=== PATIENT | female | born 1980 | race Caucasian/White ===

== ENCOUNTER 2024-05-07 21:24 | Inpatient (IN) ==
[2024-05-07] MEDS: SODIUM CHLORIDE 0.9% 1,000 ML IV STA (21:52)
[2024-05-07] MEDS: KETOROLAC TROMETHAMINE 15 MG/ML VIAL IV STA (21:52)
--- NOTE | 2024-05-07 21:54 | Emergency Department Note ---
History of Present Illness General Chief complaint: Abdominal Pain Stated complaint: LT ABD PAIN, POSSIBLE KIDNEY STONE, DOC REF Time Seen by Provider: 05/07/24 21:27 History of Present Illness Maximum Pain Intensity: 8 This 43-year-old female presents ER with family for evaluation of left lower abdominal pain for the past week. She went to urgent care was sent in. She has had a kidney stone in the past. Patient denies chest pain, dyspnea, fevers, vomiting, urinary symptoms. No trauma to the area. No history diverticulitis. No colonoscopy. Home Medications Medication Instructions Recorded Confirmed Type acetaminophen 500 mg tablet 500 mg PO Q6H PRN Pain 05/07/24 05/07/24 History (Tylenol Extra Strength) ergocalciferol (vitamin D2) 1,250 50,000 unit PO WK 05/07/24 05/07/24 History mcg (50,000 unit) capsule ibuprofen 200 mg tablet 600 mg PO Q6H PRN Pain 05/07/24 05/07/24 History multivitamin 1 tab PO DAILY 05/07/24 05/07/24 History Allergies Allergy/AdvReac Type Severity Reaction Status Date / Time No Known Allergies Allergy Verified 05/07/24 22:21 Past Med/Surg History Problem List (Updated 05/07/24 @ 23:40 by Radha Burden PA-C) Acute hyperglycemia (Acute) Ureterolithiasis (Acute) Renal colic on left side (Acute) Social History Smoking Status: Never smoker Feels Safe at Home: Yes Review of Systems A total of 10 systems reviewed and were otherwise negative Physical Exam Vital Signs Vital Signs - 24 hr 05/07/24 21:27 05/07/24 21:47 05/07/24 21:47 Temperature 36.9 C Temperature Source Temporal Artery Scan Pulse Rate 112 H 104 H Pulse Rate [Apical] 103 H Pulse Rhythm Regular Pulse Strength Normal Respiratory Rate 20 19 Respiratory Effort / Characteristics Non-Labored Spontaneous Respiratory Depth Normal Blood Pressure 168/90 H Blood Pressure [Left Arm] 201/101 H Blood Pressure Mean 116 Blood Pressure Mean [Left Arm] 134 Blood Pressure Position Sitting Pulse Oximetry 98 94 Oxygen Delivery Method Room Air Room Air Sepsis Recent Fever Within 48 Hours No Sepsis New/Unexplained Change in Mental Status N/A Sepsis Action Taken by Nursing No Action Required 05/07/24 21:49 05/07/24 23:00 Temperature Temperature Source Pulse Rate 104 H Pulse Rate [Apical] 81 Pulse Rhythm Pulse Strength Respiratory Rate 18 25 H Respiratory Effort / Characteristics Respiratory Depth Blood Pressure Blood Pressure [Left Arm] 159/105 H Blood Pressure Mean Blood Pressure Mean [Left Arm] 123 Blood Pressure Position Pulse Oximetry 94 98 Oxygen Delivery Method Room Air Room Air Sepsis Recent Fever Within 48 Hours Sepsis New/Unexplained Change in Mental Status Sepsis Action Taken by Nursing VITALS: Vitals are noted on the nurse's note and reviewed by myself. Vital signs stable. GENERAL: Pleasant female, in no acute distress, nondiaphoretic, well-developed well-nourished. SKIN: Capillary reflex less than 2 seconds. HEENT: Normocephalic. PERRLA. EOMI. Nares patent. Mucous membranes moist. Neck is supple without nuchal rigidity. HEART: Regular rate and rhythm LUNGS: Clear to auscultation bilaterally without wheezes, rales or rhonchi. No retractions or accessory muscle use. ABDOMEN: Positive bowel sounds x 4. Normal tympanic percussion. Soft, tender to palpation left lower quadrant, without masses or organomegaly. Aguilar sign negative. No guarding or rebound tenderness. no CVA tenderness MUSCULOSKELETAL: No gross musculoskeletal defects. NEURO: Patient was alert and oriented to person place and time. No focal neurological deficits. Course Administered Medications Ceftriaxone Sodium (Rocephin) 2,000 mg in 50 mls @ 100 mls/hr IV NOW STA Stop: 05/08/24 00:11 Last Admin: 05/07/24 23:53 Dose: 100 mls/hr Documented By: NASIM Discontinued Medications Sodium Chloride (Nss) 1,000 mls @ 999 mls/hr IV .Q1H1M STA Stop: 05/07/24 22:43 Last Infusion: 05/07/24 23:54 Dose: Infused Documented By: Admin: 05/07/24 21:52 Dose: 999 mls/hr Documented By: NASIM Acetaminophen (Ofirmev) 1,000 mg in 100 mls @ 400 mls/hr IV NOW STA Stop: 05/07/24 23:49 Last Admin: 05/07/24 23:53 Dose: 400 mls/hr Documented By: NASIM Ioversol (Optiray 320 100ml) 92 ml IV ONCE ONE Stop: 05/07/24 22:18 Last Admin: 05/07/24 22:17 Dose: 92 ml Documented By: AGUSTIN Ketorolac Tromethamine (Ketorolac Tromethamine 15 Mg/Ml Vial) 10 mg IV NOW STA Stop: 05/07/24 21:44 Last Admin: 05/07/24 21:52 Dose: 10 mg Documented By: NASIM Tamsulosin HCl (Tamsulosin Hcl 0.4 Mg Cap) 0.4 mg PO NOW ONE Stop: 05/07/24 23:36 Last Admin: 05/07/24 23:53 Dose: 0.4 mg Documented By: NASIM Medical Decision Making Medical Records Attestation: I reviewed the patient's medical records. Home Medications Current Medication List: was personally reviewed by me Laboratory Data Attestation: I reviewed the patient's lab results. 05/07/24 21:54 05/07/24 21:54 Lab Results 05/07/24 05/07/24 05/07/24 Range/Units 21:46 21:54 22:01 WBC 12.01 H (4.8-10.8) K/ul RBC 4.70 (4.20-5.40) M/uL Hgb 13.2 (12.0-16.0) g/dl POC Hgb 13.3 (12.0-16.0) g/dl Hct 39.4 (37.0-47.0) % POC Hct 39 (37-47) % MCV 83.8 (80.0-100.0) fL MCH 28.1 (25.0-34.0) pg MCHC 33.5 (32.0-36.0) g/dL RDW Std Deviation 38.3 (36.4-46.3) fL RDW Coeff of Dasha 12.7 (11.5-14.5) % Plt Count 289 (130-400) K/uL MPV 9.8 (9.4-12.4) fL Immature Gran % (Auto) 0.7 % Neut % (Auto) 73.0 % Lymph % (Auto) 19.9 % [place] % (Auto) 4.7 % Eos % (Auto) 1.4 % Baso % (Auto) 0.3 % Neut # (Auto) 8.75 H (1.40-6.50) K/uL Lymph # (Auto) 2.39 (1.20-3.40) K/uL [place] # (Auto) 0.57 (0.11-0.59) K/uL Eos # (Auto) 0.17 (0.00-0.50) K/uL Baso # (Auto) 0.04 (0.00-0.20) K/uL Immature Gran # (Auto) 0.09 (0.01-0.20) K/uL POC Sodium 141 (135-144) mmol/L Sodium 138 (136-145) mmol/L POC Potassium 4.0 (3.3-5.0) mmol/L Potassium 4.0 (3.5-5.1) mmol/L POC Chloride 107 (101-112) mmol/L Chloride 106 (98-107) mmol/L Carbon Dioxide 24 (21-32) mmol/L POC Total CO2 22 L (24-31) mmol/L Anion Gap 8 (3-11) POC Anion Gap 17.0 (16-25) mmol/L POC BUN 8 (7-18) mg/dl BUN 10 (6-23) mg/dl Creatinine 0.70 (0.6-1.2) mg/dl POC Creatinine 0.7 (0.6-1.3) mg/dl Est Cr Clr Drug Dosing 132.7 ml/min Est GFR ( Amer) 121.3 ml/min Est GFR (Non-Af Amer) 104.6 ml/min BUN/Creatinine Ratio 14.3 (10-20) Glucose 144 H (70-99(Fasting)) mg/dl POC Glucose (other) 154 H (70-99) mg/dl Calcium 9.9 (8.6-10.3) mg/dl POC Ioniz Calcium [place] 1.21 (1.12-1.32) mmol/l Total Bilirubin 0.3 (0.2-1.0) mg/dl AST 30 (13-39) U/L ALT 32 (7-52) U/L Alkaline Phosphatase 81 (34-104) U/L Total Protein 7.5 (6.0-8.3) gm/dl Albumin 4.5 (3.4-5.0) gm/dl Globulin 3.0 (2.5-4.0) gm/dl Albumin/Globulin Ratio 1.5 (0.9-2) Lipase 27 (11-82) U/L HCG, Qual Negative (Negative) Urine Color Yellow Urine Appearance Cloudy A (Clear) Urine pH 5.5 (4.5-7.5) Ur Specific [place] 1.015 (1.000-1.030) Urine Protein 1+ H (Negative) Urine Glucose (UA) Negative (Negative) Urine Ketones Negative (Negative) Urine Blood 3+ H (Negative) Urine Nitrite Negative (Negative) Urine Bilirubin Negative (Negative) Urine Urobilinogen Negative (Negative) Ur Leukocyte Esterase Trace H (Negative) Urine WBC (Auto) 0-5 (0-5) /hpf Urine RBC (Auto) >20 H (0-2) /hpf U Hyaline Cast (Auto) 3-5 H (0-2) /lpf U Epithel Cells (Auto) 6-10 H (0-2) /hpf Urine Bacteria (Auto) 1+ H (None Seen) Imaging Data Attestation: I personally reviewed and interpreted this imaging study as follows: Radiologist's Impression: Abdomen/Pelvis CT 05/07/24 21:43 Exam(s): CT ABDOMEN + PELVIS With Contrast IV Amt: 92ml EXAM: CT Abdomen and Pelvis With Intravenous Contrast CLINICAL HISTORY: Left lower quadrant Pain. TECHNIQUE: Axial computed tomography images of the abdomen and pelvis with intravenous contrast. CTDI is 28 mGy and DLP is 1561 mGy-cm. Automated exposure control was utilized for the study. A dose lowering technique was utilized adhering to the principles of ALARA. CONTRAST: Patient received 92ml of IV contrast COMPARISON: No relevant prior studies available. FINDINGS: Lung bases: Unremarkable. No mass. No consolidation. ABDOMEN: Liver: Fatty infiltration of the liver. Gallbladder and bile ducts: Cholelithiasis. No ductal dilation. Pancreas: Unremarkable. No mass. No ductal dilation. Spleen: Unremarkable. No splenomegaly. Adrenals: Unremarkable. No mass. Kidneys and ureters: Mild left hydronephrosis secondary to a 7 x 4 x 10 mm ureteropelvic junction calculus. The right kidney is unremarkable. There is a simple appearing left renal cyst, no follow-up is needed. Stomach and bowel: Unremarkable. No obstruction. No mucosal thickening. PELVIS: Appendix: Normal appendix. Bladder: Unremarkable. No mass. Reproductive: Unremarkable as visualized. ABDOMEN and PELVIS: Intraperitoneal space: Unremarkable. No free air. No significant fluid collection. Bones/joints: No acute fracture. No dislocation. Soft tissues: Unremarkable. Vasculature: Unremarkable. No abdominal aortic aneurysm. Lymph nodes: Unremarkable. No enlarged lymph nodes. IMPRESSION: 1. Mild left hydronephrosis secondary to a 7 x 4 x 10 mm ureteropelvic junction calculus. 2. Fatty infiltration of the liver. 3. Cholelithiasis. Electronically signed by: Priya Contreras MD 05/07/24 23:28 PM MDM Narrative Prior records/ancillary studies reviewed. Triage Nursing notes reviewed. Additional history obtained from family. The patient's history was concerning for abdominal pain. Differential diagnosis: Etiologies such as appendicitis, diverticulitis, PUD, biliary pathology, UTI, pancreatitis, obstruction, mesenteric ischemia, aortic pathology, infections, inflammatory bowel disease, renal colic, as well as others were entertained. Physical examination findings: As above. ER treatment provided: An order was placed for continuous cardiac monitoring. The monitor shows a rate of 60-100 with a sinus rhythm per my Independent interpretation. IV fluids, Toradol, Tylenol, Flomax, Rocephin for possible UTI. No prior urine culture for review I did review the notes from urgent care. Patient had blood in her urine. No signs of infection. Negative hCG On reassessment the patient felt better. Diagnostics interpreted by me: The labs Independently Interpreted by myself revealed mild leukocytosis, hyperglycemia, DKA. Negative hCG, urine with bacteria and concerns for possible infection. Patient was given Rocephin. Imaging studies: Imaging as above Consultation: A consultation was placed with the hospitalist. The case was discussed and diagnostics were reviewed. The patient was evaluated in the ER for further treatment. Exam and history seem consistent with left renal colic with urolithiasis with possible UTI. The stone is quite large. Patient is having increasing pain. Medicine was consulted and case was discussed. She will be evaluated for possible admission for intractable kidney stone pain. By the evaluation outlined above emergent etiologies such as appendicitis, diverticulitis, PUD, biliary pathology, pancreatitis, obstruction, mesenteric ischemia, aortic pathology, inflammatory bowel disease, as well as others were deemed relatively unlikely. The pt informed about the findings as listed above. All questions were answered and pleased with the treatment. The chart was completed utilizing [employer] voice recognition software. Grammatical errors, random word insertions, pronoun errors, and incomplete sentences are an occassional consequence of this system due to software limitations, ambient noise, and hardware issues. Any formal questions or concerns about the content, text, or information contained within the body of this dictation should be directly addressed to the physician credit control assistant for clarification. Impression & Plan Renal colic on left side, Ureterolithiasis, Acute hyperglycemia Discharge Plan Visit Data Chief Complaint: Abdominal Pain Stated Complaint: LT ABD PAIN, POSSIBLE KIDNEY STONE, DOC REF ED Provider: Mic De La Cruz ED Midlevel Provider: Radha Burden Discharge Problem: Renal colic on left side, Ureterolithiasis, Acute hyperglycemia Patient Disposition: Being Evaluated by Hospitalist Condition: Good Forms Stand Alone Forms: DVS [employer] Prescriptions Prescriptions: No Action multivitamin Tablet 1 tab PO DAILY acetaminophen [Tylenol Extra Strength] 500 mg Tablet 500 mg PO Q6H PRN (Reason: Pain) ibuprofen 200 mg Tablet 600 mg PO Q6H PRN (Reason: Pain) ergocalciferol (vitamin D2) 1,250 mcg (50,000 unit) capsule 50,000 unit PO WK Rx Instructions: MONDAYS Referrals Referrals: Patt Benitez DO [Outside Practitioners] -
[2024-05-07 22:08] LABS: Basophils # (auto) 0.04 K/uL (0.00-0.20); Basophils % (auto) 0.3 %; Eosinophils # (auto) 0.17 K/uL (0.00-0.50); Eosinophils % (auto) 1.4 %; Hematocrit (blood only) 39.4 % (37.0-47.0); Hemoglobin 13.2 g/dl (12.0-16.0); Immature Granulocytes # (auto) 0.09 K/uL (0.01-0.20); Immature Granulocytes % (auto) 0.7 %; Lymphocytes # (auto) 2.39 K/uL (1.20-3.40); Lymphocytes % (auto) 19.9 %; Mean Corpuscular Hemoglobin 28.1 pg (25.0-34.0); Mean Corpuscular Hgb Conc 33.5 g/dL (32.0-36.0); Mean Corpuscular Volume 83.8 fL (80.0-100.0); Mean Platelet Volume 9.8 fL (9.4-12.4); Monocytes # (auto) 0.57 K/uL (0.11-0.59); Monocytes % (auto) 4.7 %; Neutrophils # (auto) 8.75 K/uL (1.40-6.50); Platelet Count 289 K/uL (130-400); RDW Coefficient of Variation 12.7 % (11.5-14.5); RDW Standard Deviation 38.3 fL (36.4-46.3); White Blood Count 12.01 K/ul (4.8-10.8)
[2024-05-07 22:12] LABS: iSTAT Creatinine 0.7 mg/dl (0.6-1.3); iSTAT Hemoglobin 13.3 g/dl (12.0-16.0); iSTAT Ionized Calcium 1.21 mmol/l (1.12-1.32)
[2024-05-07 22:13] LABS: Appearance Urine Cloudy (Clear); Bacteria Urine Automated 1+ (None Seen); Bilirubin Urine Negative (Negative); Blood Urine 3+ (Negative); Color Urine Yellow; Glucose Urine UA Negative (Negative); Ketones Urine Negative (Negative); Leukocyte Esterase Urine Trace (Negative); Nitrite Urine Negative (Negative); Protein Urine 1+ (Negative); RBC Urine Automated >20 /hpf (0-2); Specific Gravity Urine 1.015 (1.000-1.030); Urobilinogen Urine Negative (Negative); WBC Urine Automated 0-5 /hpf (0-5); pH Urine 5.5 (4.5-7.5)
[2024-05-07] MEDS: OPTIRAY 320 100ml IV ONE (22:17)
[2024-05-07 22:24] LABS: Pregnancy Test, Serum Negative (Negative)
[2024-05-07 22:27] LABS: Albumin Globulin Ratio 1.5 (0.9-2); Albumin Level 4.5 gm/dl (3.4-5.0); BUN Creatinine Ratio 14.3 (10-20); Bilirubin,Total 0.3 mg/dl (0.2-1.0); Calcium 9.9 mg/dl (8.6-10.3); Creatinine Clr Calc Pharmacy 132.7 ml/min; Est GFR (African American) 121.3 ml/min; Est GFR (Non-African American) 104.6 ml/min; Total Protein 7.5 gm/dl (6.0-8.3)
--- NOTE | 2024-05-07 23:28 | CT Scan Report ---
Exam(s): CT ABDOMEN + PELVIS With Contrast IV Amt: 92ml EXAM: CT Abdomen and Pelvis With Intravenous Contrast CLINICAL HISTORY: Left lower quadrant Pain. TECHNIQUE: Axial computed tomography images of the abdomen and pelvis with intravenous contrast. CTDI is 28 mGy and DLP is 1561 mGy-cm. Automated exposure control was utilized for the study. A dose lowering technique was utilized adhering to the principles of ALARA. CONTRAST: Patient received 92ml of IV contrast COMPARISON: No relevant prior studies available. FINDINGS: Lung bases: Unremarkable. No mass. No consolidation. ABDOMEN: Liver: Fatty infiltration of the liver. Gallbladder and bile ducts: Cholelithiasis. No ductal dilation. Pancreas: Unremarkable. No mass. No ductal dilation. Spleen: Unremarkable. No splenomegaly. Adrenals: Unremarkable. No mass. Kidneys and ureters: Mild left hydronephrosis secondary to a 7 x 4 x 10 mm ureteropelvic junction calculus. The right kidney is unremarkable. There is a simple appearing left renal cyst, no follow-up is needed. Stomach and bowel: Unremarkable. No obstruction. No mucosal thickening. PELVIS: Appendix: Normal appendix. Bladder: Unremarkable. No mass. Reproductive: Unremarkable as visualized. ABDOMEN and PELVIS: Intraperitoneal space: Unremarkable. No free air. No significant fluid collection. Bones/joints: No acute fracture. No dislocation. Soft tissues: Unremarkable. Vasculature: Unremarkable. No abdominal aortic aneurysm. Lymph nodes: Unremarkable. No enlarged lymph nodes. IMPRESSION: 1. Mild left hydronephrosis secondary to a 7 x 4 x 10 mm ureteropelvic junction calculus. 2. Fatty infiltration of the liver. 3. Cholelithiasis. Electronically signed by: Priya Contreras MD 05/07/24 23:28 PM
[2024-05-07] MEDS: cefTRIAXone SODIUM 2,000 MG/50 ML BAG IV STA (23:53)
[2024-05-07] MEDS: TAMSULOSIN HCL 0.4 MG CAP PO ONE (23:53)
[2024-05-07] MEDS: ACETAMINOPHEN 1,000 MG/100 ML VIAL IV STA (23:53)
--- NOTE | 2024-05-07 23:57 | History & Physical Report ---
Date of Service May 07, 2024 Assessment & Plan (1) Ureterolithiasis: Plan: 43yo female presenting with left sided flank and abdominal pain ongoing x 1 week found to have mild left hydronephrosis secondary to a 7 x 4 x 10mm ureteropelvic junction calculus. Patient with ongoing pain. UA with 1+ bacteria -Admit to medical -Follow urine culture -Strain all urine -Keep patient NPO for possible Urological intervention in AM -IVF with LR at 125mL/hr x 2L -Tylenol PRN -Morphine PRN -Zofran PRN -Ceftriaxone 1gm IV daily -Urology consultation appreciated (2) Acute hyperglycemia: Plan: BSG elevated at 144, non-fasting. No history of DM -Check HgbA1C F/E/N - LR at 125mL/hr x 2L, electrolytes WNL, NPO for now PPx - low risk for DVT Code - Full Dispo -Admit to medical History of Present Illness Chief Complaint: Flank and abdominal pain Primary Care Provider: Yahir Bolton Ana Ram is a 43yo female with history of ankylosing spondylosis, prior renal stone 2.5 years ago (which resolved with increased fluid and apple cider vinegar) presenting with one week of left flank and anterior abdominal pain. Patient reports that pain has been present for the last week but became more intense today. It is predominantly located in the left lower abdomen. She has been trying to drink lemon water and increased fluids to assist with passing the stone. She was seen at Urgent Care and had a UA obtained which revealed blood, concern for renal stone. Patient was subsequently sent to the ER. She also reports feeling very tired and lethargic this week but otherwise denies fever, chills, cough, CP, SOB, nausea, vomiting or diarrhea. No additional complaints. In the ER she is afebrile, HD stable ER Course: Ceftriaxone Allergies Allergy/AdvReac Type Severity Reaction Status Date / Time No Known Allergies Allergy Verified 05/07/24 22:21 Home Medications Medication Instructions Recorded Confirmed Type acetaminophen 500 mg tablet 500 mg PO Q6H PRN Pain 05/07/24 05/07/24 History (Tylenol Extra Strength) ergocalciferol (vitamin D2) 1,250 50,000 unit PO WK 05/07/24 05/07/24 History mcg (50,000 unit) capsule ibuprofen 200 mg tablet 600 mg PO Q6H PRN Pain 05/07/24 05/07/24 History multivitamin 1 tab PO DAILY 05/07/24 05/07/24 History Past Med/Surg History Problem List Acute hyperglycemia (Acute) Ureterolithiasis (Acute) Renal colic on left side (Acute) Social History Smoking Status: Never smoker Feels Safe at Home: Yes Review of Systems Review of Systems: All systems reviewed & are unremarkable except as noted in HPI & below Physical Exam Physical Exam: General: patient resting comfortably, NAD, non-toxic in appearance, AA&O x 4 Skin: warm, dry, intact, no rashes or lesions HEENT: NC/AT, PERRL, EOMI, anicteric sclera, conjunctiva without injection, external ear normal to inspection and nontender, nares patent, moist mucus membranes, dentition intact, no oropharyngeal lesions, neck supple, trachea midline, no LAD, no thyromegaly, no JVD Heart: +S1/S2, regular, no m/r/g Lungs: equal air entry bilaterally, no rales/rhonchi/wheezes Abd: +BS, soft, NT/ND, no masses/organomegaly/ascites Ext: warm, 2+ pulses in UE/LE bilaterally, no clubbing/cyanosis or edema Neuro: nonfocal, patient AA&O x 4, speech intact, no facial droop, moving all extremities on command with equal strength 5/5 Results & Data Results & Data Vital Signs (Past 12 Hours) Vital Signs Temp Pulse Pulse Resp BP BP Pulse Ox 05/07/24 23:00 81 25 H 159/105 H 98 05/07/24 21:49 104 H 18 94 05/07/24 21:47 104 H 05/07/24 21:47 103 H 19 201/101 H 94 05/07/24 21:27 36.9 C 112 H 20 168/90 H 98 O2 Del Method 05/07/24 23:00 Room Air 05/07/24 21:49 Room Air 05/07/24 21:47 05/07/24 21:47 Room Air 05/07/24 21:27 Room Air Laboratory Results Laboratory Results WBC 12.01 K/ul (4.8-10.8) H 05/07/24 21:54 RBC 4.70 M/uL (4.20-5.40) 05/07/24 21:54 Hgb 13.2 g/dl (12.0-16.0) 05/07/24 21:54 POC Hgb 13.3 g/dl (12.0-16.0) 05/07/24 22:01 Hct 39.4 % (37.0-47.0) 05/07/24 21:54 POC Hct 39 % (37-47) 05/07/24 22:01 MCV 83.8 fL (80.0-100.0) 05/07/24 21:54 MCH 28.1 pg (25.0-34.0) 05/07/24 21:54 MCHC 33.5 g/dL (32.0-36.0) 05/07/24 21:54 RDW Std Deviation 38.3 fL (36.4-46.3) 05/07/24 21:54 RDW Coeff of Dasha 12.7 % (11.5-14.5) 05/07/24 21:54 Plt Count 289 K/uL (130-400) 05/07/24 21:54 MPV 9.8 fL (9.4-12.4) 05/07/24 21:54 Immature Gran % (Auto) 0.7 % 05/07/24 21:54 Neut % (Auto) 73.0 % 05/07/24 21:54 Lymph % (Auto) 19.9 % 05/07/24 21:54 [place] % (Auto) 4.7 % 05/07/24 21:54 Eos % (Auto) 1.4 % 05/07/24 21:54 Baso % (Auto) 0.3 % 05/07/24 21:54 Neut # (Auto) 8.75 K/uL (1.40-6.50) H 05/07/24 21:54 Lymph # (Auto) 2.39 K/uL (1.20-3.40) 05/07/24 21:54 [place] # (Auto) 0.57 K/uL (0.11-0.59) 05/07/24 21:54 Eos # (Auto) 0.17 K/uL (0.00-0.50) 05/07/24 21:54 Baso # (Auto) 0.04 K/uL (0.00-0.20) 05/07/24 21:54 Immature Gran # (Auto) 0.09 K/uL (0.01-0.20) 05/07/24 21:54 POC Sodium 141 mmol/L (135-144) 05/07/24 22:01 Sodium 138 mmol/L (136-145) 05/07/24 21:54 POC Potassium 4.0 mmol/L (3.3-5.0) 05/07/24 22:01 Potassium 4.0 mmol/L (3.5-5.1) 05/07/24 21:54 POC Chloride 107 mmol/L (101-112) 05/07/24 22:01 Chloride 106 mmol/L (98-107) 05/07/24 21:54 Carbon Dioxide 24 mmol/L (21-32) 05/07/24 21:54 POC Total CO2 22 mmol/L (24-31) L 05/07/24 22:01 Anion Gap 8 (3-11) 05/07/24 21:54 POC Anion Gap 17.0 mmol/L (16-25) 05/07/24 22:01 POC BUN 8 mg/dl (7-18) 05/07/24 22:01 BUN 10 mg/dl (6-23) 05/07/24 21:54 Creatinine 0.70 mg/dl (0.6-1.2) 05/07/24 21:54 POC Creatinine 0.7 mg/dl (0.6-1.3) 05/07/24 22:01 Est Cr Clr Drug Dosing 132.7 ml/min 05/07/24 21:54 Est GFR ( Amer) 121.3 ml/min 05/07/24 21:54 Est GFR (Non-Af Amer) 104.6 ml/min 05/07/24 21:54 BUN/Creatinine Ratio 14.3 (10-20) 05/07/24 21:54 Glucose 144 mg/dl (70-99(Fasting)) H 05/07/24 21:54 POC Glucose (other) 154 mg/dl (70-99) H 05/07/24 22:01 Calcium 9.9 mg/dl (8.6-10.3) 05/07/24 21:54 POC Ioniz Calcium [place] 1.21 mmol/l (1.12-1.32) 05/07/24 22:01 Total Bilirubin 0.3 mg/dl (0.2-1.0) 05/07/24 21:54 AST 30 U/L (13-39) 05/07/24 21:54 ALT 32 U/L (7-52) 05/07/24 21:54 Alkaline Phosphatase 81 U/L (34-104) 05/07/24 21:54 Total Protein 7.5 gm/dl (6.0-8.3) 05/07/24 21:54 Albumin 4.5 gm/dl (3.4-5.0) 05/07/24 21:54 Globulin 3.0 gm/dl (2.5-4.0) 05/07/24 21:54 Albumin/Globulin Ratio 1.5 (0.9-2) 05/07/24 21:54 Lipase 27 U/L (11-82) 05/07/24 21:54 HCG, Qual Negative (Negative) 05/07/24 21:54 Urine Color Yellow 05/07/24 21:46 Urine Appearance Cloudy (Clear) A 05/07/24 21:46 Urine pH 5.5 (4.5-7.5) 05/07/24 21:46 Ur Specific [place] 1.015 (1.000-1.030) 05/07/24 21:46 Urine Protein 1+ (Negative) H 05/07/24 21:46 Urine Glucose (UA) Negative (Negative) 05/07/24 21:46 Urine Ketones Negative (Negative) 05/07/24 21:46 Urine Blood 3+ (Negative) H 05/07/24 21:46 Urine Nitrite Negative (Negative) 05/07/24 21:46 Urine Bilirubin Negative (Negative) 05/07/24 21:46 Urine Urobilinogen Negative (Negative) 05/07/24 21:46 Ur Leukocyte Esterase Trace (Negative) H 05/07/24 21:46 Urine WBC (Auto) 0-5 /hpf (0-5) 05/07/24 21:46 Urine RBC (Auto) >20 /hpf (0-2) H 05/07/24 21:46 U Hyaline Cast (Auto) 3-5 /lpf (0-2) H 05/07/24 21:46 U Epithel Cells (Auto) 6-10 /hpf (0-2) H 05/07/24 21:46 Urine Bacteria (Auto) 1+ (None Seen) H 05/07/24 21:46 Impressions Abdomen/Pelvis CT 05/07/24 21:43 Exam(s): CT ABDOMEN + PELVIS With Contrast IV Amt: 92ml EXAM: CT Abdomen and Pelvis With Intravenous Contrast CLINICAL HISTORY: Left lower quadrant Pain. TECHNIQUE: Axial computed tomography images of the abdomen and pelvis with intravenous contrast. CTDI is 28 mGy and DLP is 1561 mGy-cm. Automated exposure control was utilized for the study. A dose lowering technique was utilized adhering to the principles of ALARA. CONTRAST: Patient received 92ml of IV contrast COMPARISON: No relevant prior studies available. FINDINGS: Lung bases: Unremarkable. No mass. No consolidation. ABDOMEN: Liver: Fatty infiltration of the liver. Gallbladder and bile ducts: Cholelithiasis. No ductal dilation. Pancreas: Unremarkable. No mass. No ductal dilation. Spleen: Unremarkable. No splenomegaly. Adrenals: Unremarkable. No mass. Kidneys and ureters: Mild left hydronephrosis secondary to a 7 x 4 x 10 mm ureteropelvic junction calculus. The right kidney is unremarkable. There is a simple appearing left renal cyst, no follow-up is needed. Stomach and bowel: Unremarkable. No obstruction. No mucosal thickening. PELVIS: Appendix: Normal appendix. Bladder: Unremarkable. No mass. Reproductive: Unremarkable as visualized. ABDOMEN and PELVIS: Intraperitoneal space: Unremarkable. No free air. No significant fluid collection. Bones/joints: No acute fracture. No dislocation. Soft tissues: Unremarkable. Vasculature: Unremarkable. No abdominal aortic aneurysm. Lymph nodes: Unremarkable. No enlarged lymph nodes. IMPRESSION: 1. Mild left hydronephrosis secondary to a 7 x 4 x 10 mm ureteropelvic junction calculus. 2. Fatty infiltration of the liver. 3. Cholelithiasis. Electronically signed by: Priya Contreras MD 05/07/24 23:28 PM PG Care Time/CCT Total # of Minutes Spent Total Time Spent with Patient: Total time spent is greater than 50% in coordination of care (as documented) at patient's floor/unit and/or counseling patient: Coding Level of Care Code 83096 INT INP/OBS CARE MIN Diagnoses Ureterolithiasis N20.1 Acute hyperglycemia R73.9
[2024-05-08] MEDS ORDERED: ONDANSETRON INJ 2 MG/ML 2 ML VIAL IV PRN (01:06)
[2024-05-08] MEDS ORDERED: MoRPHine SULFATE 2 MG/ML CARP IV PRN (01:06)
[2024-05-08] MEDS ORDERED: MoRPHine SULFATE 4 MG/ML 1 ML CARP\\VIAL IV PRN (01:06)
[2024-05-08] MEDS: LACTATED RINGER'S 1,000 ML IV SCH (01:22)
[2024-05-08 06:48] LABS: Hematocrit (blood only) 35.9 % (37.0-47.0); Hemoglobin 11.7 g/dl (12.0-16.0); Mean Corpuscular Hemoglobin 27.7 pg (25.0-34.0); Mean Corpuscular Hgb Conc 32.6 g/dL (32.0-36.0); Mean Corpuscular Volume 85.1 fL (80.0-100.0); Mean Platelet Volume 10.1 fL (9.4-12.4); Platelet Count 212 K/uL (130-400); RDW Coefficient of Variation 12.9 % (11.5-14.5); RDW Standard Deviation 39.6 fL (36.4-46.3); Red Blood Count 4.22 M/uL (4.20-5.40); White Blood Count 7.62 K/ul (4.8-10.8)
[2024-05-08 06:59] LABS: Estimated Average Glucose 143 mg/dl; Hemoglobin A1C 6.6 % (4.5-5.6)
[2024-05-08 07:11] LABS: BUN Creatinine Ratio 9.9 (10-20); Calcium 8.5 mg/dl (8.6-10.3); Creatinine Clr Calc Pharmacy 130.2 ml/min; Est GFR (African American) 119.2 ml/min; Est GFR (Non-African American) 102.9 ml/min; Potassium 3.9 mmol/L (3.5-5.1)
[2024-05-08] MEDS: ACETAMINOPHEN 325 MG TAB PO PRN (07:59)
--- NOTE | 2024-05-08 09:33 | Urology Consultation ---
Date of Consultation May 08, 2024 Assessment & Plan (1) Ureterolithiasis: (2) Renal colic on left side: 43-year-old female admitted for left renal colic secondary to left UPJ stone She is afebrile, hemodynamically stable Labs reviewedcreatinine 0.71, WBC 7.62 today Urinalysis showed 3+ blood, trace LE, 1+ bacteria Urine culture is pending Currently on IV ceftriaxone CT A/P reviewed and discussed with patient7 x 4 x 10 mm left UPJ stone with mild hydronephrosis Discussed options for stone management including left ureteral stent placement today with stone treatment at a later date versus outpatient stone treatment if pain is controlled Ureteral stents were discussed in detail After discussion, she prefers outpatient stone treatment No acute intervention today, okay for diet Patient can be discharged from perspective when medically stable Recommend course of abx, Tamsulosin and prn analgesia upon discharge She is scheduled for outpatient follow-up with our service next week to discuss definitive stone treatment will sign off, please contact our service with any questions or concerns History of Present Illness Attending Physician: Blake Johnson MD History of Present Illness This is a 43 year-old female with past medical history of kidney stones who presented to the emergency department on 05/07/2024 for evaluation of left flank pain. On arrival to ED, she was afebrile, tachycardic and hypertensive. Lab work showed mild leukocytosis (12.01), normal renal function (0.70), hCG negative. Urinalysis showed 3+ blood, trace LE, greater than symbol 20 RBC, 6-10 epithelials and 1+ bacteria. Workup included CT abdomen pelvis which showed mild left hydronephrosis secondary to a 7 x 4 x 10 mm UPJ stone, left renal cyst. She was treated with IV fluids, acetaminophen, ketorolac and ceftriaxone in the emergency department. She was admitted to the hospital medicine service for ureterolithiasis. Patient seen and examined at bedside this morning. She reports left flank pain is improved since arrival. She is voiding spontaneously, no dysuria or hematuria at present. Denies nausea, vomiting, fever or chills at present. She has prior history of kidney stones. She was scheduled for a stone surgery in the past, but then spontaneously passed her stone. She reports her past stone was smaller in size. No family history of stones. Allergies Allergy/AdvReac Type Severity Reaction Status Date / Time No Known Allergies Allergy Verified 05/07/24 22:21 Home Medications Medication Instructions Recorded Confirmed Type acetaminophen 500 mg tablet 500 mg PO Q6H PRN Pain 05/07/24 05/07/24 History (Tylenol Extra Strength) ergocalciferol (vitamin D2) 1,250 50,000 unit PO WK 05/07/24 05/07/24 History mcg (50,000 unit) capsule ibuprofen 200 mg tablet 600 mg PO Q6H PRN Pain 05/07/24 05/07/24 History multivitamin 1 tab PO DAILY 05/07/24 05/07/24 History Patient History Social History Smoking Status: Never smoker Second Hand Exposure: No; Hx Alcohol Use: No Hx Substance Use: No Preferred Language: Iraqi Communication Ability: Effective Programming Specialist Required: No Beliefs That Will Affect Care: None Current Living Situation: Significant Other Feels Safe at Home: Yes Assistive Devices: None Review of Systems Review of Systems: All systems reviewed & are unremarkable except as noted in HPI & below Physical Exam Constitutional: well developed and well nourished; no acute distress Respiratory: normal respiratory effort; no respiratory distress and no labored breathing Gastrointestinal (Abdomen): Inspection/Auscultation: abdomen normal to inspection Musculoskeletal: Head/Neck/Chest: normocephalic Neurologic: moves all extremities and awake Psychiatric: Orientation: alert and oriented x 3 Results & Data Vital Signs (Past 12 Hours) Vital Signs Temp Pulse Pulse Pulse Resp BP Pulse Ox 05/08/24 07:27 36.5 C 83 16 151/78 H 96 05/08/24 01:32 05/08/24 01:32 36.8 C 75 18 126/74 96 05/07/24 23:00 81 25 H 159/105 H 98 05/07/24 21:49 104 H 18 94 05/07/24 21:47 104 H 05/07/24 21:47 103 H 19 201/101 H 94 O2 Del Method 05/08/24 07:27 Room Air 05/08/24 01:32 Room Air 05/08/24 01:32 Room Air 05/07/24 23:00 Room Air 05/07/24 21:49 Room Air 05/07/24 21:47 05/07/24 21:47 Room Air PG Care Time/CCT Total # of Minutes Spent Total Time Spent with Patient: Total time spent is greater than 50% in coordination of care (as documented) at patient's floor/unit and/or counseling patient: Coding Level of Care Code 40898 IN/OBS CONSULT LVL 4,60M Diagnoses Ureterolithiasis N20.1 Renal colic on left side N23
--- NOTE | 2024-05-08 17:53 | Discharge Summary ---
Discharge Summary Date of Service May 08, 2024 Principal Dx & Hospital Course #1 = Principal Diagnosis (1) Ureterolithiasis: Presented with left sided flank and abdominal pain ongoing x 1 week found to have mild left hydronephrosis secondary to a 7 x 4 x 10mm ureteropelvic junction calculus. Patient with ongoing pain on admission. - UA with 1+ bacteria - Urine culture pending - Urology consulted > Discussed options for stone management including left ureteral stent placement with stone treatment later date versus outpatient stone treatment if pain is controlled. Patient elected outpatient stone treatment. > Follow-up urology appointment scheduled for 05/08/2024 - Discharged on Keflex x 7 days for UTI treatment and Flomax 0.4 mg daily until urology follow-up appointment - Multimodal pain control on discharge: Tylenol and Ibuprofen, with prescription for oxycodone 5 mg Q6H PRN for severe/breakthrough pain - Urine strainer provided to patient on discharge. Encouraged patient to strain urine to monitor for passage of stone (2) Acute hyperglycemia: On admission, BSG elevated at 144, non-fasting. No history of DM. - HgbA1c 6.6% on 05/08/24. - Had discussion about lifestyle/diet modification. Provided info sheets about this on discharge - Recommend follow-up with PCP for blood sugar monitoring and to discuss medication options if needed Plan CODE STATUS: Full code Notes For Next Care Provider Follow-up appointment with urology scheduled for 05/13/2024 for definitive stone management. HgbA1c came back 6.6%. Educated patient on lifestyle/diet modifications. No indication for immediate initiation of medication at this time. Follow-up with PCP as needed for blood sugar monitoring. Medication Changes From Visit Keflex 500 mg twice daily x 7 days Flomax 0.4 mg daily until urology follow-up appointment Oxycodone 5 mg every 6 hours as needed for severe/breakthrough pain Admission HPI Per Admitting Provider Ana Ram is a 43yo female with history of ankylosing spondylosis, prior renal stone 2.5 years ago (which resolved with increased fluid and apple cider vinegar) presenting with one week of left flank and anterior abdominal pain. Patient reports that pain has been present for the last week but became more intense today. It is predominantly located in the left lower abdomen. She has been trying to drink lemon water and increased fluids to assist with passing the stone. She was seen at Urgent Care and had a UA obtained which revealed blood, concern for renal stone. Patient was subsequently sent to the ER. She also reports feeling very tired and lethargic this week but otherwise denies fever, chills, cough, CP, SOB, nausea, vomiting or diarrhea. No additional complaints. In the ER she is afebrile, HD stable ER Course: Ceftriaxone Admission Exam Per Admitting Provider General: patient resting comfortably, NAD, non-toxic in appearance, AA&O x 4 Skin: warm, dry, intact, no rashes or lesions HEENT: NC/AT, PERRL, EOMI, anicteric sclera, conjunctiva without injection, external ear normal to inspection and nontender, nares patent, moist mucus membranes, dentition intact, no oropharyngeal lesions, neck supple, trachea midline, no LAD, no thyromegaly, no JVD Heart: +S1/S2, regular, no m/r/g Lungs: equal air entry bilaterally, no rales/rhonchi/wheezes Abd: +BS, soft, NT/ND, no masses/organomegaly/ascites Ext: warm, 2+ pulses in UE/LE bilaterally, no clubbing/cyanosis or edema Neuro: nonfocal, patient AA&O x 4, speech intact, no facial droop, moving all extremities on command with equal strength 5/5 Discharge Exam General: No acute distress, nondiaphoretic, well-developed, well-nourished. Skin: The skin was without rashes, erythema, edema, or bruising. Cardiac: Regular rate and rhythm without murmurs gallops or rubs. Pulm: Clear to auscultation bilaterally without wheezes, rales or rhonchi. No retractions or accessory muscle use. Abdominal: Positive bowel sounds x 4. Soft, nontender, without masses or organomegaly. No guarding or rebound tenderness. Neuro: A&O x3. No focal neurological deficits. Updated Medication List Medication Instructions Recorded Confirmed Type acetaminophen 500 mg tablet 500 mg PO Q6H PRN Pain 05/07/24 05/07/24 History (Tylenol Extra Strength) ergocalciferol (vitamin D2) 1,250 50,000 unit PO WK 05/07/24 05/07/24 History mcg (50,000 unit) capsule ibuprofen 200 mg tablet 600 mg PO Q6H PRN Pain 05/07/24 05/07/24 History multivitamin 1 tab PO DAILY 05/07/24 05/07/24 History cephalexin 500 mg capsule 500 mg PO BID 7 days #14 caps 05/08/24 Rx oxycodone 5 mg tablet 5 mg PO Q6H PRN pain, severe #10 05/08/24 Rx tabs tamsulosin 0.4 mg capsule 0.4 mg PO DAILY #10 caps 05/08/24 Rx Hospital Stay Data Consultations 05/07/24 23:35 ED Decision to Admit Stat 05/07/24 23:56 Consult Urology Routine Diagnostic Imagining Performed Abdomen/Pelvis CT 05/07/24 21:43 FINDINGS: Lung bases: Unremarkable. No mass. No consolidation. ABDOMEN: Liver: Fatty infiltration of the liver. Gallbladder and bile ducts: Cholelithiasis. No ductal dilation. Pancreas: Unremarkable. No mass. No ductal dilation. Spleen: Unremarkable. No splenomegaly. Adrenals: Unremarkable. No mass. Kidneys and ureters: Mild left hydronephrosis secondary to a 7 x 4 x 10 mm ureteropelvic junction calculus. The right kidney is unremarkable. There is a simple appearing left renal cyst, no follow-up is needed. Stomach and bowel: Unremarkable. No obstruction. No mucosal thickening. PELVIS: Appendix: Normal appendix. Bladder: Unremarkable. No mass. Reproductive: Unremarkable as visualized. ABDOMEN and PELVIS: Intraperitoneal space: Unremarkable. No free air. No significant fluid collection. Bones/joints: No acute fracture. No dislocation. Soft tissues: Unremarkable. Vasculature: Unremarkable. No abdominal aortic aneurysm. Lymph nodes: Unremarkable. No enlarged lymph nodes. IMPRESSION: 1. Mild left hydronephrosis secondary to a 7 x 4 x 10 mm ureteropelvic junction calculus. 2. Fatty infiltration of the liver. 3. Cholelithiasis. Electronically signed by: Priya Contreras MD 05/07/24 23:28 PM Pending Results Patient Have Any Pending Studies at Discharge: Yes Discharge Instructions Given to Patient (Per Discharging Provider) Ana, You were admitted to the hospital because of a left kidney stone with hydronephrosis (swelling of your kidney). Your urinalysis was suggestive of a urinary tract infection (UTI), so you were started on an antibiotic. You were evaluated by urology who discussed options for stone management. Since you have elected for outpatient stone treatment, he will follow-up with urology in their outpatient office. Your prescriptions have been sent to your pharmacy. Additionally, your blood sugar was elevated on admission. Your HgbA1c was checked and found to be 6.6%. This is an indicator of your average blood sugar readings over 60-90 days. Although this is elevated (normal A1c range is 4.55.6), it is not elevated to the point where you need to start a prescription medication at this time. Lifestyle/diet modifications can control your blood sugar at this time. Upon discharge from the hospital: * Take Keflex (oral antibiotic) 500 mg twice daily x 7 days. This is to treat your UTI. It is important to complete this course of antibiotics even if you no longer experiencing symptoms. * Take Flomax 0.4 mg daily. This is an alpha-emilie relaxes the muscles in your bladder, making it easier to pee and potentially pass the kidney stone. Take this until your urology follow-up appointment. * Alternate between Tylenol and ibuprofen as your first-line pain control. These are [id number] (OTC), so no prescription is required. * Take oxycodone 5 mg every 6 hours NEEDED for breakthrough pain. This is a narcotic pain medication. Do not drive or operate heavy machinery when taking this. * Use the urine strainer to strain your urine at home in case you pass the stone. Given the size of your stone, I think it is unlikely you will pass this without intervention, but it is important to monitor if you do pass the stone. Your nurse will provide you with a strainer prior to leaving the hospital. * Follow-up with urology outpatient. You have an appointment scheduled for 05/13/2024 at 9:30 AM. * I recommend lifestyle/diet modifications to help control your blood sugars. You can follow-up with your PCP as needed for further monitoring and possible medication prescriptions to control your blood sugar. I have attached a couple handouts to your discharge paperwork with lifestyle/diet recommendations. Please return to the hospital if you experience any of the following: Pain that is not controlled by the medicine given, repeated vomiting or unable to keep down fluids, fever of 100.4 F or higher, solid red or brown urine, urine with a lot of blood clots, foul-smelling or cloudy urine, unable to urinate for 8 hours with increasing bladder pressure, weakness, dizziness, passing out, chest pain, or difficulty breathing. It was a pleasure taking care of you while you were in the hospital, Nancy Flores PA-C Total Time Total Time Spent Total Time Spent (In Minutes): Greater than 30 minutes spent completing this discharge process including direct patient care, medication reconciliation, documentation, review of labs and images, and coordination of care. Coding Level of Care Code 42821 INP/OBS DISCH >30 MIN Diagnoses Ureterolithiasis N20.1 Acute hyperglycemia R73.9
[2024-05-08] MEDS ORDERED: cefTRIAXone SODIUM 2,000 MG/50 ML BAG IV SCH (21:00)
--- NOTE | 2024-05-11 08:25 | Communication Note ---
Date of Service: May 11, 2024 I was contacted by RN this morning about patient calling in reporting that she would like her medications switched -- reporting her antibiotic (Keflex) is gi ving her a headache and the oxycodone is not helping. Patient requesting Toradol. I asked RN to inform patient to call urology office to address this as I am unable to send new prescriptions for her now unfortunately. I recommended she increases her oxycodone to 2 tablets (10 mg total) in the meantime. Additionally, I recommended the antibiotic be continued as I doubt Keflex is the cause of her headache. RN reported patient was informed.
== END 2024-05-08 12:30 | disposition home or self-care (01) | DRG 690 ==
LOC: ED 21:24 → SUATTDRO 23:56 → 3N 23:56